=== PATIENT | female | born 1985 | race Hispanic/Latino ===

== ENCOUNTER 2017-10-24 12:55 | Emergency (ER) | payer BC ==
--- NOTE | 2017-10-24 14:12 | ER ---
Nurse's Notes [facility] Name: Bisi Russell Age: 32 yrs Sex: Female : 1985 Arrival Date: 10/24/2017 Time: 12:57 Bed 18 Private MD: BECKIE RAHMAN Diagnosis: left Nipple lump/swelling Presentation: 10/24 13:14 Presenting complaint: Patient states: reddened area that was draining this morning, is iw painful, noted to left breast next to the nipple. Transition of care: patient was not received from another setting of care. Onset of symptoms was October 24, 2017. Risk Assessment: Do you want to hurt yourself or someone else? Patient reports no desire to harm self or others. Initial Sepsis Screen: Does the patient meet any 2 criteria? No. Patient's initial sepsis screen is negative. Does the patient have a suspected source of infection? Yes: Skin breakdown/wound. Care prior to arrival: None. 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 - Family history:: not pertinent. - Social history:: Smoking status: Patient/guardian denies using tobacco. - Ebola Screening: : No symptoms or risks identified at this time. - Hospitalizations: : No recent hospitalization is reported. Screenin:11 Abuse screen: Denies threats or abuse. Denies injuries from another. Nutritional hb screening: No deficits noted. Tuberculosis screening: No symptoms or risk factors identified. Fall Risk None identified. Assessment: 14:00 General: Appears in no apparent distress. Behavior is calm, cooperative. Pain: Pain hb currently is 8 out of 10 on a pain scale. Neuro: Level of Consciousness is awake, alert, obeys commands, Oriented to person, place, time, situation. Cardiovascular: Capillary refill < 3 seconds Patient's skin is warm and dry. Respiratory: Airway is patent Respiratory effort is even, unlabored, Respiratory pattern is regular, symmetrical. GI: No signs and/or symptoms were reported involving the gastrointestinal system. : No signs and/or symptoms were reported regarding the genitourinary system. EENT: No signs and/or symptoms were reported regarding the EENT system. Derm: Abscess located on left nipple is dime sized, has no drainage, is raised. Musculoskeletal: No signs and/or symptoms reported regarding the musculoskeletal system. Vital Signs: 13:15 BP 106 / 72; Pulse 88; Resp 16; Temp 98.2; Pulse Ox 100% on R/A; Pain 8/10; iw 14:10 BP 107 / 67; Pulse 76; Resp 17; Pulse Ox 100% on R/A; dh3 ED Course: 12:57 Patient arrived in ED. sb2 12:57 BECKIE RAHMAN is Private Physician. sb2 13:04 Scott Sierra MD is Attending Physician. wa 13:13 Damaris Mclain RN is Primary Nurse. hb 13:14 Arm band placed on. iw 13:15 Triage completed. iw 13:55 Patient has correct armband on for positive identification. Placed in gown. Bed in low hb position. Call light in reach. Side rails up X 1. 14:01 Breast exam. hb 14:20 Patient did not have IV access during this emergency room visit. hb Administered Medications: 14:09 Drug: Tylenol 1000 mg Route: PO; hb 14:23 Follow up: Response: Medication administered at discharge. hb 14:10 Drug: Motrin 600 mg Route: PO; hb 14:23 Follow up: Response: Medication administered at discharge. hb Outcome: 14:12 Discharge ordered by . wa 14:15 Discharged to home ambulatory. hb 14:15 Condition: stable 14:15 Discharge instructions given to patient, Instructed on discharge instructions, follow up and referral plans. medication usage, Demonstrated understanding of instructions, follow-up care, medications, Prescriptions given X 2. 14:26 Patient left the ED. hb Signatures: Rosie Marroquin RN RN Damaris Mclain RN RN Fernanda Guerin 3 Scott Sierra MD MD ga Maria G Banuelos sb2
--- NOTE | 2017-10-24 14:12 | EDPHYS ---
Physician Documentation [facility] Name: Bisi Russell Age: 32 yrs Sex: Female : 1985 Arrival Date: 10/24/2017 Time: 12:57 Bed 18 Private MD: BECKIE RAHMAN ED Physician Scott Sierra HPI: 10/24 14:05 This 32 yrs old Female presents to ER via Ambulatory with complaints of Breast wa Lump. 14:05 c/o L nipple area swelling and pain. denies fever. denies breast-feeding. admits to nj skin abscesses in the armpits in the past. Onset: The symptoms/episode began/occurred 2 day(s) ago. Severity of symptoms: At their worst the symptoms were moderate in the emergency department the symptoms are unchanged. The patient has not experienced similar symptoms in the past. The patient has not recently seen a physician. 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 - Family history:: not pertinent. - Social history:: Smoking status: Patient/guardian denies using tobacco. - Ebola Screening: : No symptoms or risks identified at this time. - Hospitalizations: : No recent hospitalization is reported. ROS: 14:07 Constitutional: Negative for fever, chills, and weight loss, Eyes: Negative for injury, wa pain, redness, and discharge, ENT: Negative for injury, pain, and discharge, Neck: Negative for injury, pain, and swelling, Cardiovascular: Negative for chest pain, palpitations, and edema, Respiratory: Negative for shortness of breath, cough, wheezing, and pleuritic chest pain, Abdomen/GI: Negative for abdominal pain, nausea, vomiting, diarrhea, and constipation, Back: Negative for injury and pain, : Negative for injury, bleeding, discharge, and swelling, MS/Extremity: Negative for injury and deformity, Neuro: Negative for headache, weakness, numbness, tingling, and seizure, Psych: Negative for depression, anxiety, suicide ideation, homicidal ideation, and hallucinations. 14:07 Skin: Positive for swelling, of the Right nipple, pain. 14:07 All other systems are negative. Exam: 14:08 Constitutional: This is a well developed, well nourished patient who is awake, alert, wa and in no acute distress. Head/Face: Normocephalic, atraumatic. Eyes: Pupils equal round and reactive to light, extra-ocular motions intact. Lids and lashes normal. Conjunctiva and sclera are non-icteric and not injected. Cornea within normal limits. Periorbital areas with no swelling, redness, or edema. ENT: Nares patent. No nasal discharge, no septal abnormalities noted. Tympanic membranes are normal and external auditory canals are clear. Oropharynx with no redness, swelling, or masses, exudates, or evidence of obstruction, uvula midline. Mucous membranes moist. Neck: Trachea midline, no thyromegaly or masses palpated, and no cervical lymphadenopathy. Supple, full range of motion without nuchal rigidity, or vertebral point tenderness. No Meningismus. Chest/axilla: Normal chest wall appearance and motion. Nontender with no deformity. No lesions are appreciated. Cardiovascular: Regular rate and rhythm with a normal S1 and S2. No gallops, murmurs, or rubs. Normal PMI, no JVD. No pulse deficits. Respiratory: Lungs have equal breath sounds bilaterally, clear to auscultation and percussion. No rales, rhonchi or wheezes noted. No increased work of breathing, no retractions or nasal flaring. Abdomen/GI: Soft, non-tender, with normal bowel sounds. No distension or tympany. No guarding or rebound. No evidence of tenderness throughout. Back: No spinal tenderness. No costovertebral tenderness. Full range of motion. MS/ Extremity: Pulses equal, no cyanosis. Neurovascular intact. Full, normal range of motion. Neuro: Awake and alert, GCS 15, oriented to person, place, time, and situation. Cranial nerves II-XII grossly intact. Motor strength 5/5 in all extremities. Sensory grossly intact. Cerebellar exam normal. Normal gait. Psych: Awake, alert, with orientation to person, place and time. Behavior, mood, and affect are within normal limits. 14:08 Skin: lesion(s), noted, and can be described as tender, small, skin-colored, non-fluctuant swelling, located on the just medial to L nipple. Vital Signs: 13:15 BP 106 / 72; Pulse 88; Resp 16; Temp 98.2; Pulse Ox 100% on R/A; Pain 8/10; iw 14:10 BP 107 / 67; Pulse 76; Resp 17; Pulse Ox 100% on R/A; dh3 MDM: 13:04 Patient medically screened. wa 14:11 Differential Diagnosis small induration. consider early abscess. will cover with pain wa control and abx. advise return if worse, or come to a head. Data reviewed: vital signs, nurses notes. Administered Medications: 14:09 Drug: Tylenol 1000 mg Route: PO; hb 14:23 Follow up: Response: Medication administered at discharge. hb 14:10 Drug: Motrin 600 mg Route: PO; hb 14:23 Follow up: Response: Medication administered at discharge. hb Disposition: 10/24/17 14:12 Discharged to Home. Impression: left Nipple lump/swelling. - Condition is Stable. - Discharge Instructions: Skin Abscess, [id number]. - Prescriptions for Bactrim DS 800- 160 mg Oral Tablet - take 1 tablet by ORAL route every 12 hours for 7 days; 14 tablet. Ibuprofen 600 mg Oral Tablet - take 1 tablet by ORAL route every 8 hours As needed take with food; 15 tablet. - Medication Reconciliation Form, Thank You Letter, Antibiotic Education, Prescription Opioid Use form. - Follow up: Private Physician; When: 2 - 3 days; Reason: Re-evaluation by your physician. - Problem is new. - Symptoms have improved. Signatures: Damaris Mclain RN RN Scott Sierra MD MD nj Corrections: (The following items were deleted from the chart) 14:26 14:12 10/24/2017 14:12 Discharged to Home. Impression: left Nipple lump/swelling. hb Condition is Stable. Forms are Medication Reconciliation Form, Thank You Letter, Antibiotic Education, Prescription Opioid Use. Follow up: Private Physician; When: 2 - 3 days; Reason: Re-evaluation by your physician. Problem is new. Symptoms have improved. wa
[2017-10-24] MEDS ORDERED: ACETAMINOPHEN 500 MG TAB ONE (14:14)
[2017-10-24] MEDS ORDERED: IBUPROFEN 200 MG TAB PO ONE (14:14)
[2017-10-24 14:32] VITALS: TEMP 98.2; O2SAT 100
[2017-10-24 14:33] VITALS: BP 107/67
== END 2017-10-24 14:26 | disposition home or self-care (01) ==
LOC: ER 12:55
DX: N63.20 Unspecified lump in the left breast, unspecified quadrant (principal)
CPT/HCPCS: 99283